=== PATIENT | female | born 1985 | race Hispanic/Latino ===

== ENCOUNTER 2018-08-20 19:40 | Emergency (ER) | payer BC, OTHER ==
[2018-08-20 20:56] LABS: HIV (1/2) Antibody/Antigen Non-Reactive (NonReactive); HIV 1/2 INDEX 0.19 S/CO (<1.00); Hep C IgG Ab Non-Reactive (NonReactive)
[2018-08-21 03:04] LABS: HBSAB Concentration 648.03 mIU/mL; Hep B Surf AB Reactive (NonReactive)
== END 2018-08-20 20:00 | disposition home or self-care (01) ==
LOC: ERS 19:40
DX: Z77.21 Contact with and (suspected) exposure to potentially hazardous body fluids (principal); E03.9 Hypothyroidism, unspecified; F41.9 Anxiety disorder, unspecified; F32.9 Major depressive disorder, single episode, unspecified; F17.210 Nicotine dependence, cigarettes, uncomplicated; Z79.899 Other long term (current) drug therapy
CPT/HCPCS: 36415; 86706; 86803; 87389; 99283

== ENCOUNTER 2018-10-14 12:59 | Inpatient (IN) | payer BC, OTHER ==
[~2018-10-14 12:59] MED LIST: ISOVUE-370 76%-LOCM 1 ML ONE
[2018-10-14] MEDS ORDERED: Morphine 4 MG/ML VIAL ONE ×2 (13:19→15:41)
[2018-10-14] MEDS ORDERED: Ondansetron PF 4 MG/2 ML Vial ONE (13:19)
[2018-10-14 13:55] LABS: #Basophils 0.1 thou/uL (0.0-0.2); #Eosinphils 0.1 thou/uL (0.0-0.7); #Lymphocytes 1.9 thou/uL (1.20-3.40); #Monocytes 0.8 thou/uL (0.11-0.59); #Neutrophils 12.1 thou/uL (1.40-6.50); %Basophils 0.7 % (0.0-1.0); %Eosinophils 0.6 % (0.0-10.0); %Lymphocytes 12.6 % (21.0-51.0); %Monocytes 5.6 % (0.0-10.0); %Neutrophils 80.6 % (42.0-75.0); Mean Corpuscular HGB CONC 33.1 g/dL (32.0-36.0); Mean Corpuscular Hemoglobin 29.9 pg (27.0-31.0); Mean Corpuscular Volume 90.2 fL (78.0-98.0); Platelet Count 317 thou/uL (130-400); RBC Distribution Width 12.8 % (11.5-14.5); Red Blood Cell (RBC) Count 4.02 mill/uL (4.20-5.40); White Blood Cell (WBC) Count 15.1 thou/uL (4.8-10.8)
[2018-10-14 14:53] LABS: ALT (SGPT) 53 U/L (8-55); AST (SGOT) 102 U/L (5-34); Albumin 4.2 g/dL (3.5-5.0); Alkaline Phosphatase 61 U/L (40-150); Anion Gap 14 mmol/L (10-20); BUN (Urea Nitrogen) 12 mg/dL (7.0-18.7); Bilirubin, Total 0.8 mg/dL (0.2-1.2); Calc. Creatinine Clearance 0 mL/min (70-130); Calcium 9.1 mg/dL (7.8-10.44); Carbon Dioxide 19 mmol/L (22-29); Chloride 108 mmol/L (98-107); Estimated GFR-MDRD Greater than 90; Globulin 2.6 g/dL (2.4-3.5); Glucose 113 mg/dL (70-105); Lipase 1665 U/L (8-78); Potassium 3.7 mmol/L (3.5-5.1); Protein, Total 6.8 g/dL (6.0-8.3); Sodium 137 mmol/L (136-145)
[2018-10-14 14:57] LABS: Bilirubin Negative (Negative); Blood, Urine Small (Negative); Clarity CLEAR (Clear); Glucose, Urine (Dipstick) Negative (Negative); Leukocyte Negative (Negative); Nitrite Negative (Negative); Protein, Urine (Dipstick) Trace mg/dL (Neg-Trace); Specific Gravity, Urine 1.026 (1.002-1.036)
[2018-10-14 14:59] LABS: Bacteria/HPF None Seen HPF (None Seen); Hyaline Casts/LPF 4-6 HYALINE CAST LPF (0-3 Hyaline); Pathc Cast-AUWi Flag 1.45 (0-2.49); Pregnancy Test - Urine (BHCG) Negative (Negative); Pregu Control Background? CLEAR/WHITE (CLR/WHITE); Pregu Control Bar Appear? YES (CONTROL BAR); Specific Gravity 1.026 (1.002-1.036); Squamous Epithelial 0-3 HPF (0-3); WBC/HPF None Seen HPF (0-3)
[2018-10-14] MEDS ORDERED: Acetaminophen 650 MG Suppository PR PRN (16:07)
[2018-10-14] MEDS ORDERED: Zolpidem Tartrate 5 MG TAB PO PRN (16:07)
[2018-10-14] MEDS ORDERED: Morphine 2 MG/ML SYRINGE SLOW IVP PRN (16:09)
--- NOTE | 2018-10-14 16:18 | PDOC.EVN ---
Event Note - Event Note Event Note: H&P dictated [id number]
[2018-10-14 16:37] LABS: Cardiac Risk 3.7 (Less than 4.5)
--- NOTE | 2018-10-14 16:57 | HP ---
CHIEF COMPLAINT: Abdominal pain. HISTORY OF PRESENT ILLNESS: This is a 33-year-old female presenting with abdominal pain, started last night until this morning, some epigastric, shooting to the back 9/10 in pain, ever happened before admitted to the hospital, coming in from the ER, found to have pancreatitis. Allergies, no known drug allergies. PAST MEDICAL HISTORY: PCOS. HOME MEDICATIONS: See NOV. SOCIAL HISTORY: Quit smoking in August. Social drinker. FAMILY HISTORY: Noncontributory. REVIEW OF SYSTEMS: All systems reviewed. Pertinent positives in HPI, otherwise negative. ALLERGIES: NO KNOWN DRUG ALLERGIES MENTIONED EARLIER. PHYSICAL EXAMINATION: VITAL SIGNS: Blood pressure is 126/86, heart rate of 90, respiratory rate of 18, temperature 98, and O2 saturation 100% on room air. GENERAL: The patient lying in bed, in no acute discomfort. HEENT: Pupils equal, round, and reactive to light and accommodation. Extraocular muscles intact. Oral cavity moist and pink. CARDIOVASCULAR: Regular rate and rhythm. S1 and S2. No murmurs, rubs, or gallops appreciated. PULMONARY: Clear to auscultation bilaterally. No respiratory distress. ABDOMEN: Positive bowel sounds. Soft and nontender. EXTREMITIES: 2+ peripheral pulses. No edema noted. NEUROLOGIC: Cranial nerves 2 through 12 intact. LABORATORY DATA: CBC; white count of 15, otherwise normal. Basic metabolic panel shows lipase of 1665. Urinalysis positive for trace ketones. IMAGING DATA: No image studies noted. ASSESSMENT: 1. Pancreatitis. 2. Abdominal pain. 3. Nausea and vomiting. PLAN: At this point in time, we will admit the patient to Internal Medicine Team. Provided with IV fluids, aggressive hydration. We will obtain a CT scan with contrast for now, possible necrotizing pancreatitis with high white count as well as subjective fevers at home. We will start the patient on Merrem for empiric coverage for now. If pancreatitis without necrosis noted on CT scan and no indication for antibiotics, and to be stopped in the morning. Lovenox for DVT prophylaxis. Pain management. Case and plan discussed with the patient at length. She understands and agrees with this plan. She wishes to remain a full code. Further management to be adjusted as the patient's course continues. Job ID: [id number]
[2018-10-14] MEDS ORDERED: Meropenem 1 GM in Sodium Chloride 0.9% 100 ML IVPB SCH (17:00)
[2018-10-14 17:45] VITALS: BMI 30.8
--- NOTE | 2018-10-14 18:09 | CT ---
CT ABDOMEN WITH CONTRAST: History: Abdominal pain. Comparison: 2004 FINDINGS: Lungs bases are clear. No pericardial effusion. Hepatic steatosis. Prior cholecystectomy. Pancreas is unremarkable. No hydronephrosis. Aortic contour is non-aneurysmal. No retroperitoneal adenopathy. Spleen is unremar kable. Skeleton is unremarkable. IMPRESSION: No acute intraabdominal abnormality. POS: [facility]
[2018-10-14] MEDS: Sodium Chloride 0.9% 1,000 ML IV SCH (18:23)
[2018-10-14] MEDS: MEROPENEM 1 GM/50 ML 1 GM in Premix Bag 1 BAG IVPB SCH (19:04)
[2018-10-15] MEDS: Sodium Chloride 0.9% 1,000 ML IV SCH ×3 (00:10→20:29)
[2018-10-15] MEDS: MEROPENEM 1 GM/50 ML 1 GM in Premix Bag 1 BAG IVPB SCH (03:38)
[2018-10-15 05:56] LABS: #Basophils 0.1 thou/uL (0.0-0.2); #Eosinphils 0.1 thou/uL (0.0-0.7); #Lymphocytes 2.2 thou/uL (1.20-3.40); #Monocytes 0.8 thou/uL (0.11-0.59); #Neutrophils 5.2 thou/uL (1.40-6.50); %Basophils 1.1 % (0.0-1.0); %Eosinophils 1.1 % (0.0-10.0); %Lymphocytes 25.8 % (21.0-51.0); %Monocytes 9.4 % (0.0-10.0); %Neutrophils 62.6 % (42.0-75.0); Hemoglobin 11.3 g/dL (12.0-16.0); Mean Corpuscular HGB CONC 32.7 g/dL (32.0-36.0); Mean Corpuscular Volume 91.6 fL (78.0-98.0); Mean Platelet Volume 6.8 fL (7.4-10.4); Platelet Count 314 thou/uL (130-400); RBC Distribution Width 12.7 % (11.5-14.5); Red Blood Cell (RBC) Count 3.77 mill/uL (4.20-5.40); White Blood Cell (WBC) Count 8.3 thou/uL (4.8-10.8)
[2018-10-15 06:32] LABS: ALT (SGPT) 200 U/L (8-55); AST (SGOT) 141 U/L (5-34); Albumin 3.7 g/dL (3.5-5.0); Alkaline Phosphatase 68 U/L (40-150); Anion Gap 9 mmol/L (10-20); BUN (Urea Nitrogen) 7 mg/dL (7.0-18.7); Bilirubin, Total 0.6 mg/dL (0.2-1.2); Calc. Creatinine Clearance 127 mL/min (70-130); Calcium 8.9 mg/dL (7.8-10.44); Carbon Dioxide 23 mmol/L (22-29); Chloride 110 mmol/L (98-107); Estimated GFR-MDRD 84; Globulin 2.2 g/dL (2.4-3.5); Glucose 82 mg/dL (70-105); Protein, Total 5.9 g/dL (6.0-8.3); Sodium 138 mmol/L (136-145)
[2018-10-15] MEDS: Ondansetron PF 4 MG/2 ML Vial IVP PRN ×2 (08:09→14:07)
[2018-10-15] MEDS: Enoxaparin Sodium 40 MG/0.4 ML SYRINGE SC SCH (08:14)
--- NOTE | 2018-10-15 09:21 | PDOC.PN ---
- Subjective Encounter Start Date: 10/15/18 Encounter Start Time: 11:20 Subjective: Patient with marked improvement in LUZ ELENA abdominal pain. Now just a -: dull ache. Nausea but no vomiting. - Objective Resuscitation Status - Order Detail: 10/14/18 16:07 Resuscitation Status Routine Resuscitation Status: FULL: Full Resuscitation MAR Reviewed: Yes Vital Signs & Weight: Vital Signs (12 hours) Temp Pulse Resp BP Pulse Ox 10/15/18 07:45 98.2 F 68 16 103/66 97 10/15/18 04:53 98.4 F 94 20 100/64 97 10/15/18 00:40 98.4 F 69 20 98/62 93 L Weight Weight 174 lb Result Diagrams: 10/15/18 05:39 10/15/18 05:39 Phys Exam - Physical Examination Constitutional: NAD HEENT: moist MMs Respiratory: no wheezing, no rales, no rhonchi Cardiovascular: RRR, no significant murmur Gastrointestinal: soft, positive bowel sounds TTP LUZ ELENA with deep palpation only Neurological: non-focal, moves all 4 limbs Psychiatric: normal affect, A&O x 3 Dx/Plan (1) Acute pancreatitis Code(s): K85.90 - ACUTE PANCREATITIS WITHOUT NECROSIS OR INFECTION, UNSP Status: Acute Comment: previous cholecystectomy, nml TG, uncertain cause, GI consult, RUQ U/S, no necrosis on CT so d/c antibiotics (2) Hypothyroidism Code(s): E03.9 - HYPOTHYROIDISM, UNSPECIFIED Status: Chronic (3) Anxiety and depression Code(s): F41.9 - ANXIETY DISORDER, UNSPECIFIED; F32.9 - MAJOR DEPRESSIVE DISORDER, SINGLE EPISODE, UNSPECIFIED Status: Chronic - Plan cont current plan of care, DVT proph w/lovenox GI consult, start clears if ok with GI. * . - Discharge Day Encounter end time: 11:30
[2018-10-15] MEDS ORDERED: ALPRAZolam 0.25 MG TAB PO PRN (09:30)
--- NOTE | 2018-10-15 12:06 | ULT ---
RIGHT UPPER QUADRANT ULTRASOUND: History: Pancreatitis. Pain, epigastric area for one day. Technique: Multiple longitudinal and transverse images of the right upper quadrant of the abdomen obt ained using a multihertz curvilinear transducer. FINDINGS: Real-time, color flow and spectral waveform doppler analysis demonstrates the gallbladder to have bee n surgically removed. The liver is unremarkable with no evidence of masses or lesions. The common bile duct is of normal size measuring 4.4 mm. The liver is otherwise unremarkable. Visualized portion of the pancreas is unremarkable. Normal hepatopedal flow is seen in the portal system. Right kidney is unremarkable. Pole to pole measurement measuring 11.0 cm. No evidence of ascites seen. IMPRESSION: Status post cholecystectomy. No other significant right upper quadrant abnormality seen. POS: [facility]
--- NOTE | 2018-10-15 14:24 | CON ---
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 This radiated to her back and was associated with shortness of breath. She did not have any nausea or vomiting. She has not had episodes like this in the past; however, on further questioning, she had her gallbladder removed in 2013 for similar symptoms. She has never been diagnosed with pancreatitis in the past. PAST MEDICAL HISTORY: Includes hypothyroidism and endometriosis. PAST SURGICAL HISTORY: Includes cholecystectomy, appendectomy, and laparoscopy. ALLERGIES: HYDROCODONE AND YELLOW DYE. MEDICATIONS: Includes; 1. Synthroid 50 mcg p.o. daily. 2. Xanax 0.25 mg p.o. b.i.d. p.r.n. 3. BuSpar 5 mg p.o. at bedtime. SOCIAL HISTORY: She quit smoking in August. She drinks 2 to 3 drinks on social occasions less than once per week. FAMILY HISTORY: Negative for pancreatitis. REVIEW OF SYSTEMS: CONSTITUTIONAL: No fever or chills. No weight loss. EYES: No blurred vision or double vision. ENT: No sore throat or earaches. CARDIOVASCULAR: No chest pain or palpitations. PULMONARY: No shortness of breath, cough, or wheezing. GI: See above. : No hematuria or dysuria. MUSCULOSKELETAL: No joint pain or muscle weakness. SKIN: No rashes. NEUROLOGIC: No numbness or seizure activity. PHYSICAL EXAMINATION: GENERAL: Shows a well-developed, well-nourished female, in no acute distress. VITAL SIGNS: Temperature 98.2, pulse 68, respiratory rate 16, and blood pressure 103/66. HEENT: Unremarkable. NECK: Supple. CHEST: Clear. CARDIOVASCULAR: Regular rate and rhythm. ABDOMEN: Soft, slightly tender in epigastric area without rebound or guarding. Bowel sounds are present, normoactive. RECTAL: Deferred. EXTREMITIES: Normal. NEUROLOGIC: Nonfocal. LABORATORY DATA: Shows an AST of 102 on admission and total bilirubin was 0.8. Repeat LFT showed an AST of 141, ALT of 200, total protein 5.9, total bilirubin 0.6. Triglycerides are 51. Lipase is 1665. CT of the abdomen and pelvis was essentially negative. Abdominal ultrasound showed a cholecystectomy state with a common bile duct of 4.4 mm. ASSESSMENT: Acute pancreatitis of unknown etiology - the patient has bumped her LFTs, possibly consistent with choledocholithiasis. RECOMMENDATIONS: 1. Clear liquids for lunch and then low-fat for dinner and morning meal. 2. Repeat LFTs and a lipase in the morning. 3. If LFTs are trending down, then she could go home. 4. If LFTs are trending up and bilirubin is increasing, then she may subsequently need an ERCP. Job ID: [id number]
[2018-10-15] MEDS ORDERED: Acetaminophen 325 MG TAB PO PRN (14:39)
[2018-10-15] MEDS ORDERED: busPIRone HCl 5 MG TAB PO SCH (21:00)
[2018-10-16] MEDS: Sodium Chloride 0.9% 1,000 ML IV SCH ×2 (03:03→07:15)
[2018-10-16] MEDS: Ondansetron PF 4 MG/2 ML Vial IVP PRN (03:06)
[2018-10-16] MEDS ORDERED: Levothyroxine Sodium 50 MCG TAB PO SCH (06:00)
[2018-10-16 06:16] LABS: ALT (SGPT) 125 U/L (8-55); AST (SGOT) 47 U/L (5-34); Albumin 3.9 g/dL (3.5-5.0); Alkaline Phosphatase 67 U/L (40-150); Bilirubin, Direct 0.1 mg/dL (0.1-0.3); Bilirubin, Total 0.2 mg/dL (0.2-1.2); Protein, Total 6.1 g/dL (6.0-8.3)
[2018-10-16 06:22] LABS: Anion Gap 10 mmol/L (10-20); BUN (Urea Nitrogen) 7 mg/dL (7.0-18.7); Calc. Creatinine Clearance 127 mL/min (70-130); Calcium 9.2 mg/dL (7.8-10.44); Carbon Dioxide 22 mmol/L (22-29); Chloride 108 mmol/L (98-107); Estimated GFR-MDRD 84; Glucose 98 mg/dL (70-105); Lipase 53 U/L (8-78); Potassium 3.9 mmol/L (3.5-5.1); Sodium 136 mmol/L (136-145)
[2018-10-16] MEDS: Enoxaparin Sodium 40 MG/0.4 ML SYRINGE SC SCH (07:15)
--- NOTE | 2018-10-16 08:49 | PDOC.PN ---
- Subjective Encounter Start Date: 10/16/18 Encounter Start Time: 12:00 Subjective: Patient reports no more N/V or abd pain. Eating full diet well. -: Had some nausea last night better with zofran. Would like -: some zofran to go home with. - Objective Resuscitation Status - Order Detail: 10/14/18 16:07 Resuscitation Status Routine Resuscitation Status: FULL: Full Resuscitation MAR Reviewed: Yes Vital Signs & Weight: Vital Signs (12 hours) Temp Pulse Resp BP Pulse Ox 10/16/18 07:23 98.3 F 64 14 106/69 95 Weight Weight 174 lb Result Diagrams: 10/15/18 05:39 10/16/18 04:53 Phys Exam - Physical Examination Constitutional: NAD HEENT: moist MMs Respiratory: no wheezing, no rales, no rhonchi Cardiovascular: RRR, no significant murmur Gastrointestinal: soft, non-tender, no distention, positive bowel sounds Neurological: non-focal, moves all 4 limbs Psychiatric: normal affect, A&O x 3 Dx/Plan (1) Acute pancreatitis Code(s): K85.90 - ACUTE PANCREATITIS WITHOUT NECROSIS OR INFECTION, UNSP Status: Acute Comment: previous cholecystectomy, nml TG, uncertain cause, GI consult, RUQ U/S, no necrosis on CT so d/c antibiotics (2) Hypothyroidism Code(s): E03.9 - HYPOTHYROIDISM, UNSPECIFIED Status: Chronic (3) Anxiety and depression Code(s): F41.9 - ANXIETY DISORDER, UNSPECIFIED; F32.9 - MAJOR DEPRESSIVE DISORDER, SINGLE EPISODE, UNSPECIFIED Status: Chronic (4) Elevated LFTs Code(s): R94.5 - ABNORMAL RESULTS OF LIVER FUNCTION STUDIES Status: Acute Comment: improving today and lipase now normal - Plan cont current plan of care, DVT proph w/lovenox LFTs improved, eating full diet. Can d/c home and f/u with GI in -: 2 weeks. * . - Discharge Day Encounter end time: 12:20
[2018-10-16 11:18] VITALS: BP 93/57; TEMP 98.4
--- NOTE | 2018-10-17 02:04 | DIS ---
DATE OF ADMISSION: 10/14/2018 DATE OF DISCHARGE: 10/16/2018 REASON FOR ADMISSION: Pancreatitis. DIAGNOSES AT DISCHARGE: 1. Acute pancreatitis without necrosis or infection. 2. Elevated liver function tests are improving. 3. Hypothyroidism. 4. Anxiety and depression. PROCEDURES: 1. CT of the abdomen with contrast showing no acute intraabdominal abnormality. No abnormalities of the pancreas. There was some hepatic steatosis, though she does have evidence of prior cholecystectomy. 2. Ultrasound of the abdomen showing status post cholecystectomy and no other significant abnormalities. CONSULTATIONS: Gastroenterology, Dr. Ferreira. SUMMARY OF HOSPITAL COURSE: This is a 33-year-old female, presenting with abdominal pain, starting the morning of admission, epigastric, shooting to the back, very severe. Before she came into the emergency room, she was found to have a very elevated lipase, above 1000. She had nausea and vomiting as well. The patient was put in the hospital, was made n.p.o., was given IV fluids and pain medications. She had quick resolution of her symptoms and was able to start taking liquids the next day and a full diet the next evening. Dr. Ferreira was consulted for Gastroenterology. Ultrasound was done with the above results. She had normal triglycerides on her blood work and no history of any recent alcohol intake. She was noted to have a bump in her liver function tests. Given this bump, it was thought she may have passed a biliary stone that was from her biliary tree rather than the absent gallbladder. She had complete resolution of symptoms and eating well at the time of discharge and since being discharged home. DISCHARGE MANAGEMENT: Location: Discharged home. Followup: Follow up with Dr. Ferreira in 2 weeks. Activity: As tolerated. Diet: Regular diet. Medications: 1. Zofran 4 mg every 6 hours as needed for nausea and vomiting, 15 tablets dispensed. 2. Resume Xanax 0.25 mg twice a day as needed. 3. BuSpar 5 mg at night. 4. Levothyroxine 50 mcg daily. Job ID: [id number]
== END 2018-10-16 13:52 | disposition home or self-care (01) | DRG 440 ==
LOC: ERS 12:59 → T4-A 15:51
PROVIDERS: ADMIT Internal Medicine; ATTEND Internal Medicine
DX: K85.90 Acute pancreatitis without necrosis or infection, unspecified (principal); E03.9 Hypothyroidism, unspecified; F41.9 Anxiety disorder, unspecified; F32.9 Major depressive disorder, single episode, unspecified; R94.5 Abnormal results of liver function studies; Z90.49 Acquired absence of other specified parts of digestive tract; Z88.5 Allergy status to narcotic agent; Z91.048 Other nonmedicinal substance allergy status; Z79.899 Other long term (current) drug therapy; Z87.891 Personal history of nicotine dependence
CPT/HCPCS: 36415; 74160; 76705; 80048; 80053; 80061; 80076; 81003; 81015; 81025; 83690; 85025; 93005; 96361; 96374; 96375; 96376; J1650; J2185; J2270; J2405; J7050; Q9966

== ENCOUNTER 2020-01-13 10:16 | Inpatient (IN) | payer OTHER ==
[~2020-01-13 10:16] MED LIST changes: +Bupivacaine/Epinephrine 0.25% 30 ML VIAL ONE; -ISOVUE-370 76%-LOCM 1 ML ONE
[2020-01-13] MEDS ORDERED: traMADol HCl 50 MG TAB PO PRN ×2 (10:26)
[2020-01-13] MEDS: Lactated Ringer's 1,000 ML IV SCH ×2 (11:50→19:24)
[2020-01-13] MEDS ORDERED: hydrALAZINE 20 MG/ML VIAL SLOW IVP PRN (12:49)
[2020-01-13] MEDS ORDERED: Lidocaine 1% (PF) 30 ML VIAL SC PRN (12:49)
[2020-01-13] MEDS ORDERED: CEFAZOLIN 2 GM in Premix Bag 1 BAG IVPB SCH (12:49)
[2020-01-13] MEDS ORDERED: Acetaminophen 500 MG TAB PO PRN (12:49)
[2020-01-13] MEDS ORDERED: NS / Oxytocin 40 units/1000ml 1,000 ML IV PRN (12:49)
[2020-01-13] MEDS ORDERED: Zolpidem Tartrate 5 MG TAB PO PRN (12:49)
[2020-01-13] MEDS ORDERED: Misoprostol 200 MCG TAB PR PRN (12:49)
[2020-01-13] MEDS ORDERED: Promethazine HCl 25 MG/ML VIAL IM PRN (12:49)
[2020-01-13] MEDS ORDERED: Penicillin G Potassium 5 MILL.UNITS in Sodium Chloride 0.9% 100 ML IVPB SCH (12:49)
[2020-01-13] MEDS ORDERED: Ibuprofen 800 MG TAB PO PRN (12:49)
[2020-01-13] MEDS ORDERED: NS w/ Oxytocin 10 units 500 ML IV SCH ×2 (12:49)
[2020-01-13] MEDS ORDERED: Butorphanol Tartrate 1 MG/ML VIAL SLOW IVP PRN (12:49)
[2020-01-13] MEDS ORDERED: Docusate 100 MG CAP PO PRN (12:49)
[2020-01-13] MEDS ORDERED: Ondansetron PF 4 MG/2 ML Vial IVP PRN (12:49)
[2020-01-13] MEDS ORDERED: Diphenoxylate HCl/Atropine Tablet PO PRN ×2 (12:49)
[2020-01-13 13:00] LABS: Hemoglobin 12.2 g/dL (12.0-16.0); Mean Corpuscular Hemoglobin 30.8 pg (27.0-31.0); Mean Corpuscular Volume 93.2 fL (78.0-98.0); Mean Platelet Volume 9.3 fL (7.4-10.4); Platelet Count 284 thou/uL (130-400); RBC Distribution Width 13.5 % (11.5-14.5); Red Blood Cell (RBC) Count 3.95 mill/uL (4.20-5.40)
[2020-01-13 13:07] VITALS: BMI 36.8
[2020-01-13 13:35] LABS: HBSAg Index 0.15 S/CO (0-0.99); HIV (1/2) Antibody/Antigen Non-Reactive (NonReactive); HIV 1/2 INDEX 0.16 S/CO (<1.00); Hep B Surf Ag Non-Reactive S/CO (NonReactive)
[2020-01-13 15:28] LABS: Syphilis Antibody Nonreactive (Nonreactive); Syphilis Antibody Index 0.02 S/CO (<1.00 Non-Reactive)
[2020-01-14] MEDS ORDERED: Fentanyl 4 mcg/Bup 0.1% Cadd 100 ML ONE ×2 (02:12→09:48)
[2020-01-14] MEDS: Lactated Ringer's 1,000 ML IV SCH ×2 (03:38→08:00)
[2020-01-14] MEDS ORDERED: diphenhydrAMINE 50 MG/ML VIAL IVP PRN (03:42)
[2020-01-14] MEDS: Penicillin G 2.5 MILL.units 2.5 MILL.UNITS in Premix Bag 1 BAG IVPB SCH ×4 (03:42→19:48)
[2020-01-14] MEDS ORDERED: Lactated Ringer's 500 ML IV PRN (03:42)
[2020-01-14] MEDS ORDERED: Ondansetron PF 4 MG/2 ML Vial IVP PRN ×2 (03:42→11:36)
[2020-01-14] MEDS ORDERED: EPHEDRINE 25 MG/5 ML SYRINGE SLOW IVP PRN (03:42)
[2020-01-14] MEDS ORDERED: Acetaminophen 325 MG TAB PO PRN (03:42)
[2020-01-14] MEDS ORDERED: Naloxone HCl 0.4 mg/ml Vial IVP PRN ×2 (03:42)
[2020-01-14] MEDS ORDERED: Promethazine HCl 25 MG/ML VIAL IM PRN (03:42)
[2020-01-14] MEDS ORDERED: Communication Order-Pharmacy FS SCH (03:45)
[2020-01-14] MEDS ORDERED: Fentanyl 4 mcg/Bupivacaine 0.1% Cassette 100 ML EPIDURAL SCH (03:45)
[2020-01-14] MEDS ORDERED: NS / Oxytocin 40 units/1000ml 1,000 ML ONE (09:27)
[2020-01-14] MEDS ORDERED: Lidocaine 1% (PF) 30 ML VIAL ONE (09:27)
[2020-01-14] MEDS ORDERED: Milk Of Magnesia 30 ML UDCUP PO PRN (11:36)
[2020-01-14] MEDS ORDERED: diphenhydrAMINE 25 MG CAP PO PRN (11:36)
[2020-01-14] MEDS ORDERED: Zolpidem Tartrate 5 MG TAB PO PRN (11:36)
[2020-01-14] MEDS ORDERED: Preparation H Ointment 28 GM TUBE PR PRN (11:36)
[2020-01-14] MEDS ORDERED: hydrALAZINE 20 MG/ML VIAL SLOW IVP PRN (11:36)
[2020-01-14] MEDS ORDERED: Benzocaine-Menthol 82.5 ML CAN TOP PRN (11:36)
[2020-01-14] MEDS ORDERED: Misoprostol 200 MCG TAB VAG PRN (11:36)
[2020-01-14] MEDS ORDERED: Bisacodyl 10 MG SUPP PR PRN (11:36)
[2020-01-14] MEDS ORDERED: traMADol HCl 50 MG TAB PO PRN (11:36)
[2020-01-14] MEDS ORDERED: Adacel (T-DAP) 0.5 ML SYRINGE IM ONE (11:36)
[2020-01-14] MEDS ORDERED: Lanolin Ointment 7 GM TUBE TOP PRN (11:36)
[2020-01-14] MEDS ORDERED: NS / Oxytocin 40 units/1000ml 1,000 ML IV SCH (11:45)
[2020-01-14] MEDS: Ibuprofen 800 MG TAB PO SCH ×2 (15:01→21:45)
[2020-01-14] MEDS: Ferrous Sulfate 325 MG TAB PO SCH (15:18)
[2020-01-14] MEDS: Docusate Calcium (SURFAK) 240 MG CAP PO SCH (21:45)
[2020-01-15] MEDS: Ferrous Sulfate 325 MG TAB PO SCH (07:43)
[2020-01-15] MEDS: Prenatal Vitamin 1 TAB PO SCH (08:22)
[2020-01-15] MEDS: Docusate Calcium (SURFAK) 240 MG CAP PO SCH ×2 (08:23→22:02)
[2020-01-15] MEDS: Ibuprofen 800 MG TAB PO SCH ×3 (08:23→22:02)
[2020-01-16] MEDS: Ibuprofen 800 MG TAB PO SCH (05:42)
[2020-01-16 07:48] VITALS: BP 107/59; TEMP 97.9
[2020-01-16] MEDS: Ferrous Sulfate 325 MG TAB PO SCH (08:19)
[2020-01-16] MEDS: Prenatal Vitamin 1 TAB PO SCH (08:23)
[2020-01-16] MEDS: Docusate Calcium (SURFAK) 240 MG CAP PO SCH (08:23)
== END 2020-01-16 12:20 | disposition home or self-care (01) | DRG 807 ==
LOC: L&D 12:07 → 3SW 01-14 14:23
PROVIDERS: ADMIT Obstetrics & Gynecology; ATTEND Obstetrics & Gynecology
PROC: 10D07Z6 Extraction of Products of Conception, Vacuum, Via Natural or Artificial Opening (ICD-10-PCS; principal; 2020-01-14)
PROC: 0KQM0ZZ Repair Perineum Muscle, Open Approach (ICD-10-PCS; 2020-01-14)
DX: O76 Abnormality in fetal heart rate and rhythm complicating labor and delivery (principal); Z37.0 Single live birth; O36.5930 Maternal care for other known or suspected poor fetal growth, third trimester, not applicable or unspecified; O99.824 Streptococcus B carrier state complicating childbirth; O99.284 Endocrine, nutritional and metabolic diseases complicating childbirth; E03.9 Hypothyroidism, unspecified; O24.420 Gestational diabetes mellitus in childbirth, diet controlled; O70.1 Second degree perineal laceration during delivery; Z3A.38 38 weeks gestation of pregnancy; Z79.890 Hormone replacement therapy; Z90.49 Acquired absence of other specified parts of digestive tract
CPT/HCPCS: 85027; 86780; 86850; 86900; 86901; 87340; 87389; 88307; J0595; J0690; J2001; J2540; J3490

== ENCOUNTER 2020-09-02 13:21 | Outpatient (CLI) | payer OTHER ==
--- NOTE | 2020-09-02 13:47 | ULT ---
Thyroid ultrasound: 09/02/2020 COMPARISON: None HISTORY: Evaluate thyroid nodule TECHNIQUE: Multiplanar grayscale sonographic imaging of the thyroid gland obtained. FINDINGS: The thyroid isthmus measures 3 mm in AP dimension. The left lobe measures 1.4 x 4.0 x 1.0 cm and the right lobe measures 5.4 x 2.6 x 3.1 cm. No thyroid nodule noted in the isthmus or the left lobe. There is a complex dominant solid and cystic nodule within the mid aspect of the right lobe of the th yroid gland measuring 2.9 x 3.8 x 2.4 cm. IMPRESSION: TI-RADS category 3-mildly suspicious. Given size of the dominant right thyroid nodule, fi ne-needle aspiration is advised.
== END 2020-09-02 13:22 | disposition home or self-care (01) ==
LOC: BICULT 13:21
PROVIDERS: ATTEND Otolaryngology Plastic Surgery within the Head & Neck
DX: E04.1 Nontoxic single thyroid nodule (principal)
CPT/HCPCS: 76536

== ENCOUNTER 2021-12-10 01:52 | Emergency (ER) | payer OTHER, BC | END 2021-12-10 02:21 | disposition home or self-care (01) | LOC: ERS 01:52 | DX: S29.012A Strain of muscle and tendon of back wall of thorax, initial encounter (principal); Z87.891 Personal history of nicotine dependence; E03.9 Hypothyroidism, unspecified; Z79.899 Other long term (current) drug therapy; X50.0XXA Overexertion from strenuous movement or load, initial encounter | CPT/HCPCS: 99283 ==

== ENCOUNTER 2022-06-07 08:00 | Outpatient (CLI) | payer BC | END 2022-06-07 08:01 | disposition home or self-care (01) | LOC: PET 08:00 | PROVIDERS: ATTEND Family Medicine | DX: C73 Malignant neoplasm of thyroid gland (principal); E89.0 Postprocedural hypothyroidism | CPT/HCPCS: 78815; A9552 ==

== ENCOUNTER 2023-05-23 14:54 | Outpatient (CLI) | payer BC | END 2023-05-23 14:55 | disposition home or self-care (01) | LOC: RAD-FRANK 14:54 | PROVIDERS: ATTEND Nurse Practitioner Family | DX: R05.1 Acute cough (principal) | CPT/HCPCS: 71046 ==